=== PATIENT | female | born 1995 | race Caucasian/White ===

== ENCOUNTER → 2017-04-02 | Outpatient (CLI) | payer OTHER ==
[~2017-04-02] MED LIST: PRENATAL TABLE1 EAC3 PO
[2017-04-02 13:00] VITALS: BP 120/72
== END | disposition home or self-care (01) ==
LOC: IVINF 12:36
DX: Z31.82 Encounter for Rh incompatibility status (principal); Z3A.28 28 weeks gestation of pregnancy; Z67.91 Unspecified blood type, Rh negative
CPT/HCPCS: 96372; J2790

== ENCOUNTER 2017-06-22 07:49 | Inpatient (IN) | payer OTHER ==
[2017-06-22] VITALS (10 sets, daily range): BP systolic 121–139; BP diastolic 68–92
[~2017-06-22] VITALS: Ht 162.6 cm; Wt 76.8 kg
[2017-06-22 09:31] LABS: BASOPHIL (%) 0.3 % (0-1); EOSINOPHIL (%) 0.7 % (0-5); EOSINOPHIL COUNT 0.1 K/uL (0-0.3); HEMATOCRIT 37.5 % (36.0-46.0); HEMOGLOBIN 12.9 G/DL (11.9-15.5); IMMATURE GRANULOCYTE (%) 0.9 % (0.0-0.7); LYMPHOCYTE (%) 15.9 % (15-42); LYMPHOCYTE COUNT 2.4 K/uL (1.0-2.8); MCHC 34.4 G/DL (30.0-36.0); MCV 87.2 FL (83-99); MONOCYTE (%) 6.9 % (3-12); NEUTROPHIL (%) 75.3 % (45-76); NEUTROPHIL COUNT 11.3 K/uL (1.8-6.4); PLATELET COUNT 232 K/uL (156-360); RBC DIS.WIDTH-CV 12.9 % (11.8-14.6); RBC DIS.WIDTH-SD 40.8 % (39-53); WHITE BLOOD COUNT 14.9 K/uL (4.1-10.2)
[2017-06-22 09:41] LABS: ALBUMIN 3.3 g/dL (3.2-4.8); CHLORIDE 103 mEq/L (99-109); POTASSIUM 3.6 mEq/L (3.7-5.4); SODIUM 136 mEq/L (136-147)
[2017-06-22 09:43] LABS: GLUCOSE 90 mg/dL (70-99)
[2017-06-22 09:44] LABS: TOTAL PROTEIN 6.2 g/dL (6.4-8.3)
[2017-06-22 09:45] LABS: TOTAL BILIRUBIN 0.7 mg/dL (0.0-1.0)
[2017-06-22 09:47] LABS: ALKALINE PHOSPHATASE 219 IU/L (3-129); CREATININE 0.7 mg/dL (0.6-1.3); GFR ESTIMATE (CALCULATED) > 59 mL/min/
[2017-06-22 09:48] LABS: UREA NITROGEN (BUN) 11 mg/dL (9-23)
[2017-06-22 09:49] LABS: AST (GOT) 17 IU/L (2-34)
[2017-06-22 09:50] LABS: ALT (GPT) 15 IU/L (3-49); URIC ACID 5.5 mg/dL (3.1-9.2)
[2017-06-22 09:51] LABS: UR CREATININE CONCENTRATION 139.5 MG/DL
[2017-06-22 10:19] LABS: LACTATE DEHYDROGENASE 171 IU/L (20-246)
[2017-06-22 12:42] LABS: BASE EXCESS 0 mEq/L (-3 to +3); BICARBONATE 29.4 mEq/L (22-26); CARBOXY HGB 0 % (0-5); PCO2 67 mm Hg (35-45)
[2017-06-22 12:43] LABS: PO2 < 32 mm Hg (80-100); SITE CORD ARTERY
[2017-06-22 12:44] LABS: pH 7.25 (7.35-7.45)
[2017-06-23 03:15] VITALS: BP 119/70
[2017-06-23 06:30] LABS: BASOPHIL (%) 0.1 % (0-1); EOSINOPHIL (%) 0 % (0-5); HEMATOCRIT 27.9 % (36.0-46.0); HEMOGLOBIN 9.5 G/DL (11.9-15.5); IMMATURE GRANULOCYTE (%) 0.6 % (0.0-0.7); LYMPHOCYTE (%) 6.2 % (15-42); LYMPHOCYTE COUNT 1.3 K/uL (1.0-2.8); MCH 30.3 PG (29.0-34.0); MCHC 34.1 G/DL (30.0-36.0); MCV 88.9 FL (83-99); MONOCYTE COUNT 1.3 K/uL (0-0.8); NEUTROPHIL (%) 87.1 % (45-76); NEUTROPHIL COUNT 18.5 K/uL (1.8-6.4); PLATELET COUNT 220 K/uL (156-360); RBC DIS.WIDTH-CV 12.8 % (11.8-14.6); RBC DIS.WIDTH-SD 41.6 % (39-53); RED BLOOD COUNT 3.14 M/uL (3.80-5.20); WHITE BLOOD COUNT 21.3 K/uL (4.1-10.2)
[2017-06-23 19:43] VITALS: BP 129/82
[2017-06-23 23:31] VITALS: BP 130/79
[2017-06-24 03:18] VITALS: BP 108/58
[2017-06-24] MEDS ORDERED: HYDROCODON-ACE1 EAC7 PO (12:53)
[2017-06-24] MEDS ORDERED: DOCUSATE SODIU100 MG PO (12:53)
[2017-06-24] MEDS ORDERED: IBUPROFEN800 MG PO (12:53)
[2017-06-24] MEDS ORDERED: FERROUS SULFAT325 MG PO (12:53)
[2017-06-24] MEDS ORDERED: ENDOCET 5-3251 EACH PO (13:43)
[2017-06-24] MEDS ORDERED: BREAST PUMP MC (14:02)
== END 2017-06-24 14:45 | disposition home or self-care (01) | DRG 765 ==
LOC: LDRP-OP → 2WEST 07:50 → LDRP-OP 16:42 → 2WEST 06-24 14:45 → LDRP-OP 07-25 09:09
PROVIDERS: Obstetrics & Gynecology
PROC: 10D00Z1 Extraction of Products of Conception, Low, Open Approach (ICD-10-PCS; principal; 2017-06-22)
DX: O32.1XX0 Maternal care for breech presentation, not applicable or unspecified (principal); O69.81X0 Labor and delivery complicated by cord around neck, without compression, not applicable or unspecified; Z37.0 Single live birth; Z3A.39 39 weeks gestation of pregnancy; D62 Acute posthemorrhagic anemia; O99.02 Anemia complicating childbirth; Z87.891 Personal history of nicotine dependence
CPT/HCPCS: 36600; 80053; 82570; 82803; 83615; 84156; 84550; 85025; 86850; 86870; 86900; 86901; 86905; 86920; J0690; J1100; J1200; J1885; J2274; J2405; J3010; J3105; J7120